=== PATIENT | female | born 1955 | race Caucasian/White ===

== ENCOUNTER 2016-03-24 13:49 | Outpatient (CLI) | payer OTHER ==
--- NOTE | 2016-03-25 14:43 | Mammography Report ---
BILATERAL DIGITAL SCREENING MAMMOGRAM with CAD: 03/24/16 13:49:00 CLINICAL: Routine screening. COMPARISON:None available. FINDINGS: The breasts are heterogeneously dense, which may obscure small masses. No mass, architectural distortion or suspicious calcifications. IMPRESSION: No mammographic evidence of malignancy. BI-RADS CATEGORY: 1 - - Negative RECOMMENDATION: Routine mammographic screening in one year. COMMENT: Patient follow-up letters are generated by our [employer] application. The
== END 2016-03-24 13:50 | disposition home or self-care (01) ==
LOC: MAMMO 13:49
PROVIDERS: ATTEND Obstetrics & Gynecology
DX: Z12.31 Encounter for screening mammogram for malignant neoplasm of breast (principal)
CPT/HCPCS: 77067; G0202

== ENCOUNTER 2019-03-02 10:25 | Outpatient (CLI) | payer OTHER ==
--- NOTE | 2019-03-02 13:47 | Magnetic Resonance Report ---
. MR LEFT HAND HISTORY: Left hand pain COMPARISON: None. TECHNIQUE: Routine non-contrast MRI of the left hand obtained. CONTRAST: None. FINDINGS: There is poor fat suppression within the thumb. No abnormal T1 signal intensity is seen to suggest fracture or infection. Flexor tendons: No significant abnormality. Extensor tendons: No significant abnormality. Bone Marrow: No significant abnormality. Muscles: No significant abnormality. Subcutaneous soft tissues: No significant abnormality. Additional Findings: Surgical resection of the trapezium with susceptibility artifact noted in the th umb [facility] articulation IMPRESSION: 1. Postsurgical change with resection of trapezium. 2. Otherwise negative left hand MRI. Signer Name: Salvador Wells MD Signed: 03/02/2019 1:43 PM Workstation Name: [id number]
--- NOTE | 2019-03-02 13:48 | Magnetic Resonance Report ---
. MR UE nonjoint LT wo con INDICATION: PAIN IN L HAND. Left forearm pain TECHNIQUE: Multiplanar, multisequence MR images were obtained. COMPARISON: None available. FINDINGS: No abnormal bone marrow signal intensity is seen within the left radius or ulna. No abnormal signal i ntensity is seen within the flexor or extensor tendons or muscles or subcutaneous soft tissues. IMPRESSION: 1. Normal left forearm MRI. Signer Name: Salvador Wells MD Signed: 03/02/2019 1:44 PM Workstation Name: [id number]
== END 2019-03-02 10:26 | disposition home or self-care (01) ==
LOC: MRI 10:25
PROVIDERS: ATTEND Family Medicine
DX: M79.642 Pain in left hand (principal)